=== PATIENT | female | born 1960 | race Caucasian/White ===

== ENCOUNTER → 2022-11-12 12:58 | Outpatient (BNVA) | payer OTHER, SELFPAY | PROVIDERS: PCP Family Medicine; Visit Provider Family Medicine | DX: M25.50 Pain in unspecified joint (principal); M19.90 Unspecified osteoarthritis, unspecified site; K21.9 Gastro-esophageal reflux disease without esophagitis; L70.9 Acne, unspecified; F32.A Depression, unspecified | CPT/HCPCS: 80053; 85651; 86038; 86140; 86431 ==

== ENCOUNTER → 2022-11-25 09:51 | Outpatient (BNVA) | payer OTHER, SELFPAY | PROVIDERS: PCP Family Medicine; Visit Provider Internal Medicine Rheumatology | DX: R76.8 Other specified abnormal immunological findings in serum (principal); Z79.899 Other long term (current) drug therapy; M19.90 Unspecified osteoarthritis, unspecified site; M45.6 Ankylosing spondylitis lumbar region; Z11.59 Encounter for screening for other viral diseases; Z71.85 Encounter for immunization safety counseling | CPT/HCPCS: 36415; 82306; 85025; 86160; 86162; 86200; 86235; 86255; 86376; 86480; 86704; 86800; 86803; 86812; 87340 ==

== ENCOUNTER 2023-08-13 07:38 | Outpatient (CLI) | payer OTHER, SELFPAY ==
--- NOTE | 2023-08-13 08:10 | MM_ITS ---
WS: [id number] VIEWS: MLO and CC views both breasts. 3D digital tomosynthesis is also included in this exam. Comparison made with prior exam of 02/04/2022. Findings: There was no sign of mass, architectural distortion or suspicious calcification in either breast. Sta ble appearing nodular densities and intramammary lymph nodes in both breasts. There are scattered are as of fibroglandular density Impression: MM/[place] [id number] BI-RADS: 2-Benign finding. FOLLOW-UP: 1 Year Follow-up This mammogram was also analyzed by the Computer Aided Detection System R2 Imag e Breakdown Person.
== END 2023-08-13 07:39 | disposition home or self-care (01) ==
LOC: RAD 07:39
PROVIDERS: PCP Family Medicine; Visit Provider Family Medicine
DX: Z12.31 Encounter for screening mammogram for malignant neoplasm of breast (principal)
CPT/HCPCS: 77063; 77067

== ENCOUNTER 2024-07-18 12:14 | Outpatient (CLI) | payer OTHER, SELFPAY ==
--- NOTE | 2024-07-18 12:25 | XR_ITS ---
WS: [id number] Exam: XR lumbar spine 2-3V* [id number] Date/Time of Exam: 07/18/2024 12:39 PM Reason For Exam: M06.041 - Rheumatoid arthritis without rheumatoid factor,... No acute fracture or dislocation. 4.7 mm anterolisthesis of L5 on S1 noted. Mild to moderate degenera tive disc narrowing at all levels. Mild spondylosis. Moderate levoscoliosis at the thoracolumbar junc tion. Increased lordosis. Facet DJD at L4-5 and L5-S1. XR/XR lumbar spine 2-3V* [id number] IMPRESSION: 1. 4.7 mm anterolisthesis of L4 on L5 likely due to facet degeneration. 2. Additional degenerative changes and thoracolumbar levoscoliosis. 3. No acute fracture.
== END 2024-07-18 12:15 | disposition home or self-care (01) ==
PROVIDERS: PCP Family Medicine; Visit Provider Internal Medicine Rheumatology
DX: M47.896 Other spondylosis, lumbar region (principal); M51.369 Other intervertebral disc degeneration, lumbar region without mention of lumbar back pain or lower extremity pain; M43.16 Spondylolisthesis, lumbar region; M06.041 Rheumatoid arthritis without rheumatoid factor, right hand; M06.042 Rheumatoid arthritis without rheumatoid factor, left hand
CPT/HCPCS: 72100

== ENCOUNTER → 2024-08-03 08:24 | Outpatient (BNVA) | payer OTHER, SELFPAY | PROVIDERS: PCP Family Medicine; Referring Provider Internal Medicine Rheumatology; Visit Provider Orthopaedic Surgery | DX: M54.9 Dorsalgia, unspecified (principal) | CPT/HCPCS: 72110 ==

== ENCOUNTER 2024-08-16 08:28 | Outpatient (RCR) | payer OTHER, SELFPAY | END 2024-08-17 23:59 | disposition home or self-care (01) | LOC: SPT 08:28 | PROVIDERS: Visit Provider Orthopaedic Surgery | DX: M54.50 Low back pain, unspecified (principal); G89.29 Other chronic pain | CPT/HCPCS: 97161 ==

== ENCOUNTER 2024-08-18 06:00 | Outpatient (RCR) | payer OTHER, SELFPAY | END 2024-09-16 23:59 | disposition home or self-care (01) | LOC: SPT 06:00 | PROVIDERS: Visit Provider Orthopaedic Surgery | DX: M54.50 Low back pain, unspecified (principal); G89.29 Other chronic pain | CPT/HCPCS: 97110 ==

== ENCOUNTER 2024-09-17 06:00 | Outpatient (RCR) | payer OTHER, SELFPAY | END 2024-10-11 23:59 | disposition home or self-care (01) | LOC: SPT 06:00 | PROVIDERS: Visit Provider Orthopaedic Surgery | DX: M54.50 Low back pain, unspecified (principal); G89.29 Other chronic pain | CPT/HCPCS: 97110; 97164 ==

== ENCOUNTER 2024-12-13 13:57 | Outpatient (CLI) | payer OTHER, SELFPAY ==
--- NOTE | 2024-12-13 14:01 | MM_ITS ---
WS: [id number] BILATERAL 3D TOMOSYNTHESIS DIGITAL SCREENING MAMMOGRAPHY WITH CAD CLINICAL INFORMATION: SCREENING HISTORY: Screening mammogram. No current complaints. COMPARISON: 2022 TECHNIQUE: Bilateral CC and MLO views. FINDINGS: Scattered fibroglandular densities bilaterally. No suspicious focal mass, asymmetry, calcifications, or architectural distortion. No evidence of malignancy. Few tiny punctate and skin calcifications. MM/MM scr tomosynthesis [id number] IMPRESSION: DENSITY: There are scattered areas of fibroglandular density. BI-RADS: 2 - Benign. FOLLOW UP: 1 Year Follow-up Recommend return to annual screening mammography.
== END 2024-12-13 13:58 | disposition home or self-care (01) ==
LOC: RAD 13:59
PROVIDERS: PCP Family Medicine; Visit Provider Family Medicine
DX: Z12.31 Encounter for screening mammogram for malignant neoplasm of breast (principal); R92.323 Mammographic fibroglandular density, bilateral breasts; R92.1 Mammographic calcification found on diagnostic imaging of breast
CPT/HCPCS: 77063; 77067

== ENCOUNTER 2024-12-21 06:46 | Outpatient (CLI) | payer OTHER, MEDICAID, SELFPAY ==
--- NOTE | 2024-12-21 06:58 | CT_ITS ---
WS: [id number] CT ABDOMEN AND PELVIS WITH CONTRAST HISTORY: GENERALIZED ABD PAIN TECHNIQUE: Imaging performed of the abdomen and pelvis with IV contrast. Single phase imaging of the abdomen. Coronal and sagittal reformats are submitted. All CT scans at [facility] use at least one of these dose optimization techniques: automated exposure control; mA and/or kV adjustment per patient size (includes targeted exams where dose is matched to clinical indication); or iterative reconstruction. IV CONTRAST: Omnipaque 350; 100 mL IV. Oral contrast: Yes. DLP: 314.32 mGy.cm COMPARISON: None available. Lower thorax: Very small bilateral pleural effusions. Mild compressive atelectasis at the lung bases. No pulmonary nodule. There is very slight irregularity along the surface of the pleural effusions. Heart is normal size. Small hiatal hernia. Liver/biliary system: Normal size liver. Too small to characterize low- attenuation nodule near the gallbladder. No intrahepatic duct dilatation. Gallbladder: Normal. No gallstones or wall thickening. No pericholecystic fluid. Pancreas: Normal size pancreas and pancreatic duct. No adjacent inflammation. Spleen: Normal size spleen. No mass or infarct. Adrenal glands: Normal. Right kidney: Normal. Left kidney: Normal. Aorta: Normal. Lymphadenopathy: Pericardiac enlarged lymph nodes are hypervascular measuring up to 9 mm. Lymph nodes extend along the anterior omentum over the liver. Extensive coalescence of omental masses throughout the peritoneum. Additional more discrete nodular pattern is also present throughout the omentum. Nodules and coalescing carcinomatosis begin in the upper abdomen and extend inferiorly into the pelvis. Additional metastatic implants are noted within the pelvis. Implants are surrounded by ascites. Additional implants are noted along the serosal surface of the GI tract. Greatest serosal involvement of the transverse and LEFT colon. Implants extend along the distal gonadal veins and the ligaments of the pelvis. Greatest on the LEFT broad ligament involvement. Free fluid: Small to moderate amount of free fluid throughout the peritoneal cavity. Fluid surrounds the liver and extends along the paracolic gutter into the pelvis. GI tract: No GI tract obstruction. Appendix appears normal and is surrounded by fluid. Marked serosal implants along the surface of the colon which extend into the omentum. More focal nodularity in the descending colon. No obstructive pattern. Abdominal wall: Unremarkable abdominal wall. No hernia. Pelvis: Free fluid within the pelvis with numerous soft tissue metastatic deposits. Bones: Unremarkable. CT/CT abdomen pelvis w con* [id number] IMPRESSION: 1. 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 Coalesc ent and nodular carcinomatosis. Serosal implants on the surface of the colon. E xtensive metastatic deposits along the peritoneal surfaces of the abdomen and p patricia. Consider ovarian and GI as possible etiologies. 2. Small to moderate amount of ascites with omental implants. 3. Normal appendix. 4. Very small bilateral pleural effusions. Very slight nodularity of the pleur al effusions. Metastatic sites not excluded. 5. Paracardiac lymph nodes.
[2024-12-21] MEDS: iohexol 350 mg/mL 500 mL Btl (per mL) PO (07:17)
[2024-12-21 07:42] LABS: Blood Urea Nitrogen 13 mg/dL (8-23); Glomerular Filtration Rate 84.8 mL/min (90-130)
[2024-12-21] MEDS: iohexol 350 mg/mL 500 mL Btl (per mL) IV (08:06)
== END 2024-12-21 06:47 | disposition home or self-care (01) ==
PROVIDERS: PCP Family Medicine; Visit Provider Family Medicine
DX: R10.84 Generalized abdominal pain (principal); C80.1 Malignant (primary) neoplasm, unspecified; C78.6 Secondary malignant neoplasm of retroperitoneum and peritoneum; J90 Pleural effusion, not elsewhere classified; J98.11 Atelectasis; K44.9 Diaphragmatic hernia without obstruction or gangrene; R59.0 Localized enlarged lymph nodes; R93.3 Abnormal findings on diagnostic imaging of other parts of digestive tract; R93.89 Abnormal findings on diagnostic imaging of other specified body structures; R18.8 Other ascites
CPT/HCPCS: 74177; 82565; 84520

== ENCOUNTER 2024-12-23 12:50 | Emergency (ER) | payer OTHER, SELFPAY ==
[2024-12-23 12:55] VITALS: BP 114/80; PULSE 81; RESP 15; TEMP 36.7; O2SAT 99; BMI 23.0
--- NOTE | 2024-12-23 14:46 | W.ED.ABDPA2 ---
HPI - Abdominal Pain General: Chief Complaint: Abdominal Pain Stated Complaint: abdominal swelling/pain Time Seen by Provider: 12/23/24 14:43 History of Present Illness: 64-year-old female presents emergency room with complaint of abdominal distention and swelling. She recently had a CT done 2 days ago that showed omental carcinomatosis highly suspicious for ovarian cancer she tells me she had a CA125 done at her primary care doctor's office is markedly elevated she has follow-up early next week with surgery presumably to confirm diagnosis. She not had any significant abdominal pain or cramping at this point. Associated Symptoms: Reports bloating; Denies chills, dysuria and fever(s) Related Data Home Medications ?Medication ?Instructions ?Recorded ?Confirmed tirzepatide (weight loss) 2.5 2.5 mg SUBCUT .Q7DAYS 06/06/24 12/23/24 mg/0.5 mL subcutaneous pen injector (Zepbound) famotidine 40 mg tablet 40 mg PO DAILY 12/12/24 12/23/24 gabapentin 100 mg capsule 100 mg PO BEDTIME 12/12/24 12/23/24 minocycline 50 mg capsule 150 mg PO BEDTIME 12/23/24 12/23/24 terbinafine HCl 250 mg tablet 250 mg PO DAILY 12/23/24 12/23/24 Previous Rx's ?Medication ?Instructions ?Recorded citalopram 40 mg tablet 40 mg PO DAILY depression #90 tabs 07/14/23 spironolactone 50 mg tablet 50 mg PO DAILY #90 tabs 08/02/23 hydroxychloroquine 200 mg tablet See Rx Instructions PO .COMPLEX 12/12/24 #135 tabs hydrocodone 5 mg-acetaminophen 325 1 tab PO Q6H PRN pain #28 tabs 12/23/24 mg tablet promethazine 25 mg tablet 25 mg PO Q6H PRN nausea and 12/23/24 vomiting #28 tabs Allergies Allergy/AdvReac Type Severity Reaction Status Date / Time tramadol AdvReac Intermediate nausea and Verified 08/03/24 08:19 vomiting Review of Systems Const: Denies: fever(s) or chills Card: Denies: chest pain Resp: Denies: dyspnea GI: Reports: bloating; Denies: abdominal pain : Denies: dysuria, urinary frequency or urinary urgency Musc: Denies: neck pain or back pain Skin/Breast: Denies: rash PFSH ED PFSH: Medical History Seronegative rheumatoid arthritis of both hands Paronychia of great toe Immunization counseling High risk medication use Inflammatory arthritis Family History Other Cancer Diabetes Hypertension Lung disease Stroke Denies family history of Rheumatoid arthritis Lupus CAD (coronary artery disease) Psoriatic arthritis Chronic kidney disease (CKD) Family history of premature coronary artery disease Social History Smoking and tobacco/nicotine status: unknown if used tobacco/nicotine Alcohol intake: current Alcohol intake frequency: few times a month Physical Exam Const: COMMON NORMALS: no acute distress GENERAL APPEARANCE: cooperative and comfortable ORIENTATION/CONSCIOUSNESS: Yes awake, Yes oriented to person, Yes oriented to place and Yes oriented to time HENMT: COMMON NORMALS: normocephalic, atraumatic and hearing grossly normal bilaterally HEAD & SCALP: normocephalic and atraumatic Resp: COMMON NORMALS: normal respiratory effort, No retractions, No use of accessory muscles and clear to auscultation bilaterally AUSCULTATION: clear to auscultation bilaterally Cardio: COMMON NORMALS: regular rate, regular rhythm and No murmurs present (Cardio) RATE: regular rate RHYTHM: regular rhythm GI: COMMON NORMALS: Soft to palpation and No hepatosplenomegaly present INSPECTION: Yes abdominal distension (Moderate) AUSCULTATION: Yes normoactive bowel sounds PALPATION: Yes Soft to palpation, No Tenderness to palpation present (GI), No Guarding due to palpation present (GI) and Yes No hepatosplenomegaly present Extremity: COMMON NORMALS: normal to inspection, capillary refill normal, no clubbing, cyanosis or edema, no calf tenderness and no pedal edema Neuro: SENSORIUM/ORIENTATION: Yes oriented to person, Yes oriented to place and Yes oriented to time Skin: COMMON NORMALS: no rashes or lesions noted GENERAL SKIN EXAM: no rashes or lesions noted Course Vital Signs: Vital signs: Vital Signs Temperature 98.1 F 12/23/24 12:55 Pulse Rate 74 12/23/24 15:38 Respiratory Rate 15 12/23/24 12:55 Blood Pressure 114/80 12/23/24 12:55 Pulse Oximetry 96 12/23/24 15:38 Oxygen Delivery Me thod Room Air 12/23/24 12:55 MDM - Abdominal Pain Medical Decision Making Patient reports having increased abdominal distention. Not seen or examined her before but suspect based on reviewing the CT that she truly does. She had pretty considerable ascites on the CT. Discussed with her it is not unusual for this once it is began to manifest to become more noticeable suspect in the next week or 2 she will likely need to have a therapeutic and diagnostic paracentesis. Today is Wednesday we do not have anyone here to do the paracentesis. She could benefit from a diagnostic paracentesis which could help confirm diagnosis since she does not have a tissue confirm diagnosis at this point. Given all the history she is provide in reviewing the CT very highly suspicious for cancer particularly ovarian cancer. Discussed with her however we cannot be 100% certain until they have a tissue diagnosis. She asked expressed understanding of this. Reviewed that there is not really much medic by way of medications and give her that we will cut down on the ascites at this point. I did give her hydrocodone or promethazine so that if this worsens and she is has not increased pain nausea or abdominal discomfort she has medicines available to treat. Strongly encouraged her to follow-up with the scheduled appointments this coming week. Medical Records I reviewed the patient's medical records. Lab Data I reviewed the patient's lab results. 12/23/24 14:37 12/23/24 14:37 Labs/Radiology: Laboratory Results WBC 5.95 10^3/uL (3.29-11.43) 12/23/24 14:37 RBC 4.08 10^6/uL (3.85-5.65) 12/23/24 14:37 Hgb 12.60 g/dL (11.27-16.99) 12/23/24 14:37 Hct 39.0 % (36-47) 12/23/24 14:37 MCV 95.6 fl (85-98) 12/23/24 14:37 MCH 30.9 pg (27-33) 12/23/24 14:37 MCHC 32.3 g/dL (30-55) 12/23/24 14:37 RDW 11.9 % (12.1-15.1) L 12/23/24 14:37 Plt Count 387 10^3/cmm (157-399) 12/23/24 14:37 MPV 8.7 fL (7.4-10.4) 12/23/24 14:37 Neut % (Auto) 68.4 % 12/23/24 14:37 Lymph % (Auto) 19.2 % 12/23/24 14:37 Grand % (Auto) 9.6 % 12/23/24 14:37 Eos % (Auto) 1.7 % 12/23/24 14:37 Baso % (Auto) 0.8 % 12/23/24 14:37 Neut # (Auto) 4.07 10^3/uL (1.8-7.7) 12/23/24 14:37 Lymph # (Auto) 1.1 10^3/uL (0.8-4.8) 12/23/24 14:37 Grand # (Auto) 0.6 10^3/uL (0.2-0.9) 12/23/24 14:37 Eos # (Auto) 0.1 10^3/uL (0.0-0.8) 12/23/24 14:37 Baso # (Auto) 0.1 10^3/uL (0.0-0.1) 12/23/24 14:37 Nucleated RBC % (auto) 0 % 12/23/24 14:37 Nucleated RBCs # 0.0 /100WBC 12/23/24 14:37 PT 13.30 SECONDS (12.1-14.9) 12/23/24 14:37 INR 0.95 (0.8-1.2) 12/23/24 14:37 APTT 28.9 SECONDS (23.9-36.7) 12/23/24 14:37 Sodium 140 mmol/L (136-145) 12/23/24 14:37 Potassium 4.2 mmol/L (3.5-5.1) 12/23/24 14:37 Chloride 103 mmol/L (98-107) 12/23/24 14:37 Carbon Dioxide 26 mmol/L (22-29) 12/23/24 14:37 Anion Gap 15.2 (5-19) 12/23/24 14:37 BUN 19 mg/dL (8-23) 12/23/24 14:37 Creatinine 0.6 mg/dL (0.5-0.9) 12/23/24 14:37 GFR Calculation 101.3 mL/min (90-130) 12/23/24 14:37 Glucose 83 mg/dL (65-115) 12/23/24 14:37 Calculated Osmolality 291 mOsm/kg (285-295) 12/23/24 14:37 Calcium 9.3 mg/dL (8.5-10.5) 12/23/24 14:37 Total Bilirubin 0.3 mg/dL (0.15-1.2) 12/23/24 14:37 AST 24 U/L (0-32) 12/23/24 14:37 ALT 14 U/L (0-33) 12/23/24 14:37 Alkaline Phosphatase 140 U/L (35-105) H 12/23/24 14:37 Total Protein 6.0 g/dL (6.6-8.7) L 12/23/24 14:37 Albumin 3.6 g/dL (3.5-5.2) 12/23/24 14:37 Globulin 2.4 g/dL (1.3-4.6) 12/23/24 14:37 All radiology interpretation(s) finalized by discharge Discharge Plan Discharge Patient Disposition: Home Clinical Impression: Carcinoma of omentum, Abdominal ascites Condition: Stable Prescriptions: New hydrocodone-acetaminophen 5-325 mg tablet 1 tab PO Q6H PRN (Reason: pain) Qty: 28 0RF promethazine 25 mg tablet 25 mg PO Q6H PRN (Reason: nausea and vomiting) Qty: 28 0RF No Action hydroxychloroquine 200 mg tablet See Rx Instructions PO .COMPLEX Qty: 135 1RF Rx Instructions: Alternate taking 1 tablet by mouth today then 2 tablets tomorrow. famotidine 40 mg tablet 40 mg PO DAILY gabapentin 100 mg capsule 100 mg PO BEDTIME Zepbound 2.5 mg/0.5 mL pen injector 2.5 mg SUBCUT .Q7DAYS citalopram 40 mg tablet 40 mg PO DAILY Qty: 90 0RF spironolactone 50 mg tablet 50 mg PO DAILY Qty: 90 3RF terbinafine HCl 250 mg tablet 250 mg PO DAILY Rx Instructions: [id number] minocycline 50 mg capsule 150 mg PO BEDTIME Discharge Orders: Discharge ED (Routine); Ordered 12/23/24 Ordered By: Will Jackson Referrals: Kathleen Helms, [Primary Care Provider] - Discharge Diet: Usual diet Discharge Activity: Increase activity as tolerated Patient Instructions: Opioid Safety, Pain Management Activity Restrictions/Additional Instructions: Thank you for choosing [facility] for your healthcare needs today. It is very important that you follow up as instructed or that you return to the Emergency Department should you have concerns or if your condition changes or worsens in any way. You were seen in the emergency room for swelling in the abdomen. This is likely related to the omental carcinomatosis noted on the CT done 2 days ago. Usually once ascites starts from the source it will increase rather rapidly. After our discussion we opted not to do an ultrasound since there would be no likely interventions today in the emergency room. You should keep your scheduled appointment for further workup for this. You were given pain and nausea medications to use as needed if you have worsening symptoms. It is not unusual as this develops and increases to have more nausea and abdominal cramping. Print Language: Guamanian Coding Level of Care Code ED Chassis Mechanic for Julian Blank
[2024-12-23 14:47] LABS: Basophils # 0.1 10^3/uL (0.0-0.1); Basophils % 0.8 %; Eosinophils # 0.1 10^3/uL (0.0-0.8); Eosinophils % 1.7 %; Lymphocytes # 1.1 10^3/uL (0.8-4.8); Lymphocytes % 19.2 %; Mean Corpuscular HGB Conc 32.3 g/dL (30-55); Mean Corpuscular Hemoglobin 30.9 pg (27-33); Mean Corpuscular Volume 95.6 fl (85-98); Mean Platelet Volume 8.7 fL (7.4-10.4); Monocytes # 0.6 10^3/uL (0.2-0.9); Monocytes % 9.6 %; Neutrophils # 4.07 10^3/uL (1.8-7.7); Neutrophils % 68.4 %; Nucleated Red Blood Cells % 0 %; Platelet Count 387 10^3/cmm (157-399); Red Blood Count 4.08 10^6/uL (3.85-5.65); Red Cell Distribution Width 11.9 % (12.1-15.1); White Blood Count 5.95 10^3/uL (3.29-11.43)
[2024-12-23 14:54] LABS: INR 0.95 (0.8-1.2)
[2024-12-23 14:55] LABS: Partial Thromboplastin Time 28.9 SECONDS (23.9-36.7)
[2024-12-23 15:05] LABS: Alanine Aminotransferase 14 U/L (0-33); Albumin Level 3.6 g/dL (3.5-5.2); Alkaline Phosphatase 140 U/L (35-105); Anion Gap 15.2 (5-19); Aspartate Amino Transferase 24 U/L (0-32); Blood Urea Nitrogen 19 mg/dL (8-23); Calcium 9.3 mg/dL (8.5-10.5); Carbon Dioxide 26 mmol/L (22-29); Chloride 103 mmol/L (98-107); Creatinine Clr Calc Pharmacy 87.6824; Globulin 2.4 g/dL (1.3-4.6); Glomerular Filtration Rate 101.3 mL/min (90-130); Glucose 83 mg/dL (65-115); Osmolality Calculated 291 mOsm/kg (285-295); Potassium 4.2 mmol/L (3.5-5.1); Sodium 140 mmol/L (136-145); Total Bilirubin 0.3 mg/dL (0.15-1.2)
[2024-12-23 15:38] VITALS: PULSE 74; O2SAT 96
== END 2024-12-23 15:39 | disposition home or self-care (01) ==
PROVIDERS: Emergency Provider Family Medicine; PCP Family Medicine
DX: C48.1 Malignant neoplasm of specified parts of peritoneum (principal); R18.8 Other ascites
CPT/HCPCS: 36415; 80053; 85025; 85610; 85730; 99284

== ENCOUNTER 2025-01-05 13:59 | Emergency (ER) | payer MEDICAID, SELFPAY ==
[2025-01-05 14:56] VITALS: BP 116/73; PULSE 93; RESP 18; TEMP 37; O2SAT 99; BMI 24.0
[2025-01-05 15:55] LABS: Basophils % 0.5 %; Eosinophils # 0.1 10^3/uL (0.0-0.8); Eosinophils % 0.8 %; Lymphocytes # 0.9 10^3/uL (0.8-4.8); Lymphocytes % 11.8 %; Mean Corpuscular HGB Conc 32.4 g/dL (30-55); Mean Corpuscular Hemoglobin 29.8 pg (27-33); Mean Corpuscular Volume 91.8 fl (85-98); Mean Platelet Volume 8.6 fL (7.4-10.4); Monocytes # 0.7 10^3/uL (0.2-0.9); Monocytes % 9.5 %; Neutrophils # 5.75 10^3/uL (1.8-7.7); Nucleated Red Blood Cells % 0 %; Platelet Count 459 10^3/cmm (157-399); Red Blood Count 4.03 10^6/uL (3.85-5.65); White Blood Count 7.47 10^3/uL (3.29-11.43)
[2025-01-05 16:11] LABS: Alanine Aminotransferase 26 U/L (0-33); Alkaline Phosphatase 257 U/L (35-105); Anion Gap 16.9 (5-19); Aspartate Amino Transferase 44 U/L (0-32); Blood Urea Nitrogen 10 mg/dL (8-23); Calcium 9.2 mg/dL (8.5-10.5); Carbon Dioxide 23 mmol/L (22-29); Chloride 101 mmol/L (98-107); Globulin 3.1 g/dL (1.3-4.6); Glucose 77 mg/dL (65-115); Lipase 25 U/L (13-60); Osmolality Calculated 282 mOsm/kg (285-295); Potassium 3.9 mmol/L (3.5-5.1); Sodium 137 mmol/L (136-145); Total Bilirubin 0.6 mg/dL (0.15-1.2); Total Protein 6.1 g/dL (6.6-8.7)
[2025-01-05 18:15] VITALS: PULSE 98; O2SAT 94
--- NOTE | 2025-01-05 21:37 | ED_ITS ---
HPI - Abdominal Pain 2 General: Chief Complaint: Abdominal Pain Stated Complaint: cancer, pain and fluid all over Time Seen by Provider: 01/05/25 21:01 History of Present Illness: June is a very pleasant 64-year-old female who is here with questions about her cancer and related symptoms. She has recently been diagnosed from ovarian cancer, according to her report. She has been going to [facility] for her workup and is planning to return there shortly for discussions about debulking surgery and chemotherapy. The patient reports she started developing ascites. She had a paracentesis 4 days ago. They removed 1.1 L. Patient reports the fluid has returned and she thought she needed another paracentesis. Patient reports at times it is uncomfortable. She also wanted me to look at her port which was recently implanted to make sure there was not any sign of infection. She says initially there was a bunch of erythema around it but fortunately it has retreated. She does not feel it is overtly infected now but wants a second opinion. No fever or chills. Patient reports her pain waxes and wanes. She has been prescribed hydrocodone and oxycodone to use as needed for moderate or severe pain. Related Data Home Medications ?Medication ?Instructions ?Recorded ?Confirmed tirzepatide (weight loss) 2.5 2.5 mg SUBCUT .Q7DAYS 12/25/24 mg/0.5 mL subcutaneous pen injector (Zepbound) famotidine 40 mg tablet 40 mg PO DAILY 12/12/2412/16 gabapentin 100 mg capsule 100 mg PO BEDTIME 12/12/24 0 12/25/24 minocycline 50 mg capsule 150 mg PO BEDTIME 12/23/24 0 12/25/24 terbinafine HCl 250 mg tablet 250 mg PO DAILY 12/23/24 12/25/24 Previous Rx's ?Medication ?Instructions ?Recorded citalopram 40 mg tablet 40 mg PO DAILY depression #9 0 tabs 07/14/23 spironolactone 50 mg tablet 50 mg PO DAILY #90 tabs hydroxychloroquine 200 mg tablet See Rx Instructions P O .COMPLEX 12/12/24 #135 tabs hydrocodone 5 mg-acetaminophen 325 1 tab PO Q6H PRN pa in #28 tabs 12/23/24 mg tablet promethazine 25 mg tablet 25 mg PO Q6H PRN nausea and 12/23/24 vomiting #28 tabs Allergies Allergy/AdvReac Type Severity Reaction Status Date / Time tramadol AdvReac Intermediate nausea and Verified 12/25/24 08:04 vomiting Review of Systems 2 General: Reports: 10 or more systems reviewed and unremarkable except in HPI and below Narrative: Return of ascites, occasionally she feels like she is getting fluid buildup outside of her lungs and gets a cough, the ascites causes her urinary frequency and sometimes an urge to have a bowel movement. No fever or chills. She had some erythema around her port that she wants looked at. No other complaints. PFSH ED 2 PFSH: Medical History Seronegative rheumatoid arthritis of both hands Paronychia of great toe Immunization counseling High risk medication use Inflammatory arthritis Family History Other Cancer Diabetes Hypertension Lung disease Stroke Denies family history of Rheumatoid arthritis Lupus CAD (coronary artery disease) Psoriatic arthritis Chronic kidney disease (CKD) Family history of premature coronary artery disease Social History Smoking and tobacco/nicotine status: never used tobacco/nicotine Alcohol intake: current Alcohol intake frequency: few times a month Physical Exam 2 Const: COMMON NORMALS: no limitations, alert and well nourished EXAM LIMITATIONS: no altered mental status HENMT: COMMON NORMALS: normocephalic, atraumatic and external ears normal H EAD & SCALP: normocephalic and atraumatic EXTERNAL EAR: Yes external ears normal MOUTH: no muffled voice Eye: COMMON NORMALS: conjunctivae normal and no scleral icterus C ONJUNCTIVA: Yes conjunctivae normal Neck/C-Spine: COMMON NORMALS: no JVD GENERAL: Yes normal visual inspection and Yes trachea midline Resp: COMMON NORMALS: normal respiratory effort and No use of accessory muscles Cardio: COMMON NORMALS: no JVD and regular rate RATE: regular rate GI: COMMON NORMALS: Soft to palpation and non-tender (Mild generalized tenderness.) PALPATION: Yes Soft to palpation and No Guarding due to palpation present (GI) OTHER: Patient has a low volume ascites present. No caput medusa. She still has a bandage on her abdomen from paracentesis on Wednesday. Extremity: COMMON NORMALS: normal to inspection Neuro: COMMON NORMALS: moves all extremities, no focal motor deficits and no sensory deficits noted SENSORIUM/ORIENTATION: Yes alert SPEECH: speech normal Psych: COMMON NORMALS: mental status grossly normal, Normal thought process present, cooperative, normal affect and speech normal SPEECH: Yes normal speech THOUGHT PROCESS: Normal thought process present Skin: COMMON NORMALS: turgor normal and no jaundice NARRATIVE SKIN EXAM: Incision in the right chest shows localized erythema. This looks within normal limits for recent placement of her port. Low suspicion for infection based on visual inspection and palpation GENERAL SKIN EXAM: turgor normal Course 2 Vital Signs: Vital signs: Vital Signs Temperature 98.6 F 01/05/25 14:56 Pulse Rate 98 01/05/25 18:15 Respiratory Rate 18 01/05/25 14:56 Blood Pressure 116/73 01/05/25 14:56 Pulse Oximetry 94 01/05/25 18:15 Oxygen Delivery Me thod Room Air 01/05/25 14:56 MDM - Abdominal Pain Medical Decision Making 1. Cancer related pain. Patient reports she has adequate pain control when she uses her hydrocodone and oxycodone. Currently she is only been using it sparingly at bedtime. Patient was informed that this can be a painful process and that she should feel free to use it whenever she has moderate to severe pain that is not controlled by Tylenol and other supportive measures. 2. Patient was educated about ascites. She now knows that it will return and will continue to be a problem for her as she goes through the treatment process. Her abdomen is soft, not tense, and I have a low suspicion for SBP at this time. She just had paracentesis on Wednesday and they remove 1.1 L. 3. I did evaluate her port. There is expected amount of erythema immediately around the incision. There is no purulent discharge. There does not appear to be any significant cellulitis. The patient is afebrile nontoxic-appearing. No clinical signs of infection. White blood cell count is normal. I reviewed a CBC and CMP. Elevated alkaline phosphatase is expected. Slightly low albumin as expected. No other significant findings. Patient was reassured by our discussion. I also talked to her about making a living will and consider a revocable trust. This will give her much needed peace of mind. Patient to follow-up with [facility] for oncology care. Medical Records I reviewed the patient's medical records. Lab Data I reviewed the patient's lab results. 01/05/25 15:47 01/05/25 15:47 Labs/Radiology: Laboratory Results WBC 7.47 10^3/uL (3.29-11.43) 01/05/25 15:47 RBC 4.03 10^6/uL (3.85-5.65) 01/05/25 15:47 Hgb 12.00 g/dL (11.27-16.99) 01/05/25 15:47 Hct 37.0 % (36-47) 01/05/25 15:47 MCV 91.8 fl (85-98) 01/05/25 15:47 MCH 29.8 pg (27-33) 01/05/25 15:47 MCHC 32.4 g/dL (30-55) 01/05/25 15:47 RDW 12.0 % (12.1-15.1) L 01/05/25 15:47 Plt Count 459 10^3/cmm (157-399) H 01/05/25 15:47 MPV 8.6 fL (7.4-10.4) 01/05/25 15:47 Neut % (Auto) 77.0 % 01/05/25 15:47 Lymph % (Auto) 11.8 % 01/05/25 15:47 Phelps % (Auto) 9.5 % 01/05/25 15:47 Eos % (Auto) 0.8 % 01/05/25 15:47 Baso % (Auto) 0.5 % 01/05/25 15:47 Neut # (Auto) 5.75 10^3/uL (1.8-7.7) 01/05/25 15:47 Lymph # (Auto) 0.9 10^3/uL (0.8-4.8) 01/05/25 15:47 Phelps # (Auto) 0.7 10^3/uL (0.2-0.9) 01/05/25 15:47 Eos # (Auto) 0.1 10^3/uL (0.0-0.8) 01/05/25 15:47 Baso # (Auto) 0.0 10^3/uL (0.0-0.1) 01/05/25 15:47 Nucleated RBC % (auto) 0 % 01/05/25 15:47 Nucleated RBCs # 0.0 /100WBC 01/05/25 15:47 Sodium 137 mmol/L (136-145) 01/05/25 15:47 Potassium 3.9 mmol/L (3.5-5.1) 01/05/25 15:47 Chloride 101 mmol/L (98-107) 01/05/25 15:47 Carbon Dioxide 23 mmol/L (22-29) 01/05/25 15:47 Anion Gap 16.9 (5-19) 01/05/25 15:47 BUN 10 mg/dL (8-23) 01/05/25 15:47 Creatinine 0.5 mg/dL (0.5-0.9) 01/05/25 15:47 GFR Calculation 125.0 mL/min (90-130) 01/05/25 15:47 Glucose 77 mg/dL (65-115) 01/05/25 15:47 Calculated Osmolality 282 mOsm/kg (285-295) L 01/05/25 15:47 Calcium 9.2 mg/dL (8.5-10.5) 01/05/25 15:47 Total Bilirubin 0.6 mg/dL (0.15-1.2) 01/05/25 15:47 AST 44 U/L (0-32) H 01/05/25 15:47 ALT 26 U/L (0-33) 01/05/25 15:47 Alkaline Phosphatase 257 U/L (35-105) H 01/05/25 15:47 Total Protein 6.1 g/dL (6.6-8.7) L 01/05/25 15:47 Albumin 3.0 g/dL (3.5-5.2) L 01/05/25 15:47 Globulin 3.1 g/dL (1.3-4.6) 01/05/25 15:47 Lipase 25 U/L (13-60) 01/05/25 15:47 No radiology studies performed this visit Discharge Plan Discharge Patient Disposition: Home Clinical Impression: Disseminated ovarian cancer, Abdominal ascites, Cancer associated pain Condition: Stable Prescriptions: No Action hydroxychloroquine 200 mg tablet See Rx Instructions PO .COMPLEX Qty: 135 1RF Rx Instructions: Alternate taking 1 tablet by mouth today then 2 tablets tomorrow. famotidine 40 mg tablet 40 mg PO DAILY gabapentin 100 mg capsule 100 mg PO BEDTIME Zepbound 2.5 mg/0.5 mL pen injector 2.5 mg SUBCUT .Q7DAYS citalopram 40 mg tablet 40 mg PO DAILY Qty: 90 0RF spironolactone 50 mg tablet 50 mg PO DAILY Qty: 90 3RF terbinafine HCl 250 mg tablet 250 mg PO DAILY Rx Instructions: [id number] minocycline 50 mg capsule 150 mg PO BEDTIME hydrocodone-acetaminophen 5-325 mg tablet 1 tab PO Q6H PRN (Reason: pain) Qty: 28 0RF promethazine 25 mg tablet 25 mg PO Q6H PRN (Reason: nausea and vomiting) Qty: 28 0RF Discharge Orders: Discharge ED (Routine); Ordered 01/05/25 Ordered By: Jesus Archibald Referrals: Kathleen Helms DO [Primary Care Provider] - Patient Instructions: Ascites (ED), Cancer Pain (ED), Opioid Safety, Pain Management Activity Restrictions/Additional Instructions: It is an unfortunate reality that ovarian cancer with carcinomatosis will cause fluid collection. This will accumulate in your abdomen and we will be uncomfortable. From time to time you may need it to be drained. Fortunately, at this time it is not significant enough to require drainage. However, it is bailey to schedule a paracentesis ahead of time. Often times patients do paracentesis on a scheduled basis, such as every 2 to 4 weeks. Remember, your ascites will reaccumulate fairly quickly while you have active cancer. Please follow-up with your cancer doctor as soon as possible to continue discussions about debulking surgery, chemotherapy, etc. You are welcome to return to the emergency department at any time if you have any new urgent concerns. You have indicated that you have hydrocodone and oxycodone. These medications are not intended to be taken at the same time. You may use hydrocodone for moderate pain. You may use oxycodone for severe pain. Print Language: Singaporean Coding Level of Care Code ED Door To Door Fundraising Collector for Julian Blank
== END 2025-01-05 21:51 | disposition home or self-care (01) ==
PROVIDERS: Physician Assistant; Emergency Provider Emergency Medicine; PCP Family Medicine
DX: C56.3 Malignant neoplasm of bilateral ovaries (principal); R18.8 Other ascites; G89.3 Neoplasm related pain (acute) (chronic)
CPT/HCPCS: 36415; 80053; 83690; 85025; 99283

== ENCOUNTER 2025-04-28 11:08 | Emergency (ER) | payer MEDICAID, SELFPAY ==
[2025-04-28 11:09] VITALS: BP 106/68; PULSE 66; RESP 16; TEMP 36.9; O2SAT 100; BMI 23.5
--- NOTE | 2025-04-28 11:24 | XRR_ITS ---
PROCEDURE INFORMATION: Exam: XR Chest Exam date and time: 04/28/2025 11:48 AM Age: 64 years old Clinical indication: Cough and dyspnea; Additional info: Dyspnea/cough TECHNIQUE: Imaging protocol: Radiologic exam of the chest. Views: 1 view. COMPARISON: CT abdomen pelvis w con* [id number] 12/21/2024 8:11 AM FINDINGS: Tubes, catheters and devices: A right-sided VAD is in good position with the catheter tip in the lower SVC. Lungs: Unremarkable. No consolidation or mass. Pleural spaces: Unremarkable. No pleural effusion. No pneumothorax. Heart/Mediastinum: Unremarkable. No cardiomegaly. Bones/joints: Unremarkable. XR/XR chest 1V portable [id number] IMPRESSION: No acute findings.
[2025-04-28 11:39] LABS: Hematocrit 34.4 % (36-47); Hemoglobin 11.10 g/dL (11.27-16.99); Mean Corpuscular HGB Conc 32.3 g/dL (30-55); Mean Corpuscular Hemoglobin 32.5 pg (27-33); Mean Corpuscular Volume 100.6 fl (85-98); Nucleated Red Blood Cells % 0 %; Platelet Count 537 10^3/cmm (157-399); Red Blood Count 3.42 10^6/uL (3.85-5.65); White Blood Count 5.65 10^3/uL (3.29-11.43)
--- NOTE | 2025-04-28 11:39 | ED_ITS ---
HPI - Abdominal Pain 2 General: Chief Complaint: Abdominal Pain Stated Complaint: lower abdominal pain post surgery Time Seen by Provider: 04/28/25 11:19 History of Present Illness: 64-year-old female presents today histor y of ovarian cancer. Carcinomatosis of the abdominal cavity. She is currently seeing chemotherapy through oncology. Patient has continued heavy typical bowel movements and pass gas. She was up to the night with her dog and had no significant pain she began having sharp pain particularly in the right lower quadrant this morning. 3 weeks ago she had a oophorectomy salpingectomy related to her ovarian cancer as a debulking procedure she had chemotherapy prior to surgery she is planning to undergo more chemotherapy but has not yet proceeded with resuming in the postop setting. She has not had any fever sweats or chills no dysuria urgency or frequency. Associated Symptoms: Reports nausea; Denies chills, diarrhea, dysuria, fever(s) and vomiting Related Data Home Medications ?Medication ?Instructions ?Recorded ?Confirmed famotidine 40 mg tablet 40 mg PO BEDTIME 12/12/24 gabapentin 100 mg capsule 100 mg PO BEDTIME 12/12/24 0 04/28/25 lidocaine-prilocaine 2.5 %-2.5 % 1 applic topical KRYSTLE Y for port 04/28/25 04/28/25 topical cream Previous Rx's ?Medication ?Instructions ?Recorded citalopram 40 mg tablet 40 mg PO DAILY depression #9 0 tabs 07/14/23 spironolactone 50 mg tablet 50 mg PO DAILY #90 tabs hydroxychloroquine 200 mg tablet See Rx Instructions P O .COMPLEX 12/12/24 #135 tabs hydrocodone 5 mg-acetaminophen 325 1 tab PO Q6H PRN pa in #28 tabs 12/23/24 mg tablet promethazine 25 mg tablet 25 mg PO Q6H PRN nausea and 12/23/24 vomiting #28 tabs lactulose 10 gram/15 mL oral 30 ml PO Q2H PRN constipa tion 72 04/28/25 solution (Generlac) hours #1,080 mL Allergies Allergy/AdvReac Type Severity Reaction Status Date / Time tramadol AdvReac Intermediate nausea and Verified 12/25/24 08:04 vomiting Review of Systems 2 Const: Denies: fever(s) or chills Card: Denies: chest pain Resp: Denies: dyspnea GI: Reports: abdominal pain and nausea; Denies: vomiting or diarrhea : Denies: dysuria, urinary frequency or urinary urgency Musc: Denies: neck pain or back pain Skin/Breast: Denies: rash PFSH ED 2 PFSH: Medical History Seronegative rheumatoid arthritis of both hands Paronychia of great toe Immunization counseling High risk medication use Inflammatory arthritis Family History Other Cancer Diabetes Hypertension Lung disease Stroke Denies family history of Rheumatoid arthritis Lupus CAD (coronary artery disease) Psoriatic arthritis Chronic kidney disease (CKD) Family history of premature coronary artery disease Social History Smoking and tobacco/nicotine status: never used tobacco/nicotine Alcohol intake: current Alcohol intake frequency: few times a month Physical Exam 2 Const: GENERAL APPEARANCE: cooperative ORIENTATION/CONSCIOUSNESS: Yes awake, Yes oriented to person, Yes oriented to place and Yes oriented to time HENMT: COMMON NORMALS: normocephalic, atraumatic and hearing grossly normal bilaterally HEAD & SCALP: normocephalic and atraumatic Resp: COMMON NORMALS: normal respiratory effort, No retractions, No use of accessory muscles and clear to auscultation bilaterally AUSCULTATION: clear to auscultation bilaterally Cardio: COMMON NORMALS: regular rate, regular rhythm and No murmurs present (Cardio) RATE: regular rate RHYTHM: regular rhythm GI: COMMON NORMALS: No hepatosplenomegaly present AUSCULTATION: Yes normoactive bowel sounds PALPATION: Yes Tenderness to palpation present (GI) Details: RLQ, No Guarding due to palpation present (GI) and Yes No hepatosplenomegaly present Extremity: COMMON NORMALS: normal to inspection, capillary refill normal, no clubbing, cyanosis or edema, no calf tenderness and no pedal edema Neuro: SENSORIUM/ORIENTATION: Yes oriented to person, Yes oriented to place and Yes oriented to time Skin: COMMON NORMALS: no rashes or lesions noted GENERAL SKIN EXAM: no rashes or lesions noted Course 2 Vital Signs: Vital signs: Vital Signs Temperature 98.4 F 04/28/25 11:09 Pulse Rate 64 07/12/25 13:42 Respiratory Rate 16 04/28/25 12:45 Blood Pressure 127/78 04/28/25 13:42 Pulse Oximetry 99 04/28/25 13:42 Oxygen Delivery Me thod Room Air 04/28/25 12:45 MDM - Abdominal Pain Medical Decision Making Patient mildly anemic. Remainder of her labs are workable CT of her abdomen shows constipation no other acute findings. She does use hydrocodone takes 1 at night. Will have her start on MiraLAX she continued to ORAL once daily half capful twice a day. Lactulose for immediate relief of her constipation. Follow-up with her primary care doctor oncology team Medical Records I reviewed the patient's medical records. Lab Data I reviewed the patient's lab results. 04/28/25 11:33 04/28/25 11:33 Labs/Radiology: Radiology Impressions Chest X-Ray 04/28/25 11:24 IMPRESSION: No acute findings. Abdomen/Pelvis CT 04/28/25 12:15 IMPRESSION: 1. Prominent constipation 2. Surgical changes noted Laboratory Results WBC 5.65 10^3/uL (3.29-11.43) 04/28/25 11:33 RBC 3.42 10^6/uL (3.85-5.65) L 04/28/25 11:33 Hgb 11.10 g/dL (11.27-16.99) L 04/28/25 11:33 Hct 34.4 % (36-47) L 04/28/25 11:33 MCV 100.6 fl (85-98) H 04/28/25 11:33 MCH 32.5 pg (27-33) 04/28/25 11:33 MCHC 32.3 g/dL (30-55) 04/28/25 11:33 RDW 13.7 % (12.1-15.1) 04/28/25 11:33 Plt Count 537 10^3/cmm (157-399) H 04/28/25 11:33 MPV 8.4 fL (7.4-10.4) 04/28/25 11:33 Neut % (Auto) 54.8 % 04/28/25 11:33 Lymph % (Auto) 29.6 % 04/28/25 11:33 Fannin % (Auto) 10.1 % 04/28/25 11:33 Eos % (Auto) 3.5 % 04/28/25 11:33 Baso % (Auto) 1.6 % 04/28/25 11:33 Neut # (Auto) 3.10 10^3/uL (1.8-7.7) 04/28/25 11:33 Lymph # (Auto) 1.7 10^3/uL (0.8-4.8) 04/28/25 11:33 Fannin # (Auto) 0.6 10^3/uL (0.2-0.9) 04/28/25 11:33 Eos # (Auto) 0.2 10^3/uL (0.0-0.8) 04/28/25 11:33 Baso # (Auto) 0.1 10^3/uL (0.0-0.1) 04/28/25 11:33 Nucleated RBC % (auto) 0 % 04/28/25 11:33 Nucleated RBCs # 0.0 /100WBC 04/28/25 11:33 Sodium 144 mmol/L (136-145) 04/28/25 11:33 Potassium 3.9 mmol/L (3.5-5.1) 04/28/25 11:33 Chloride 104 mmol/L (98-107) 04/28/25 11:33 Carbon Dioxide 28 mmol/L (22-29) 04/28/25 11:33 Anion Gap 15.9 (5-19) 04/28/25 11:33 BUN 15 mg/dL (8-23) 04/28/25 11:33 Creatinine 0.5 mg/dL (0.5-0.9) 04/28/25 11:33 GFR Calculation 125.0 mL/min (90-130) 04/28/25 11:33 Glucose 99 mg/dL (65-115) 04/28/25 11:33 Calculated Osmolality 299 mOsm/kg (285-295) H 04/28/25 11:33 Calcium 10.7 mg/dL (8.5-10.5) H 04/28/25 11:33 Magnesium 1.8 mg/dL (1.7-2.3) 04/28/25 11:33 Total Bilirubin 0.4 mg/dL (0.15-1.2) 04/28/25 11:33 AST 23 U/L (0-32) 04/28/25 11:33 ALT 19 U/L (0-33) 04/28/25 11:33 Alkaline Phosphatase 150 U/L (35-105) H 04/28/25 11:33 Total Protein 6.6 g/dL (6.6-8.7) 04/28/25 11:33 Albumin 4.1 g/dL (3.5-5.2) 04/28/25 11:33 Globulin 2.5 g/dL (1.3-4.6) 04/28/25 11:33 Lipase 36 U/L (13-60) 04/28/25 11:33 Urine Color Yellow (Yellow) 04/28/25 11:45 Urine Appearance Clear (CLEAR) 04/28/25 11:45 Urine pH 5.5 (5-7) 04/28/25 11:45 Ur Specific Roberts 1.018 (1.005-1.030) 04/28/25 11:45 Urine Protein Negative (Negative) 04/28/25 11:45 Urine Glucose (UA) Negative (Normal) 04/28/25 11:45 Urine Ketones Negative (Negative) 04/28/25 11:45 Urine Blood Negative (Negative) 04/28/25 11:45 Urine Nitrate Negative (Negative) 04/28/25 11:45 Urine Bilirubin Negative (Negative) 04/28/25 11:45 Urine Urobilinogen 0.2 mg/dL (Negative) 04/28/25 11:45 Ur Leukocyte Esterase Negative (Negative) 04/28/25 11:45 Urine RBC 0-2 /hpf (0-2) 04/28/25 11:45 Urine WBC 0-5 /hpf (0-5) 04/28/25 11:45 Ur Squamous Epith Cells 0-5 /hpf (0-5) 04/28/25 11:45 Amorphous Sediment Not Reportable 04/28/25 11:45 Urine Bacteria None seen /hpf (NONE) 04/28/25 11:45 Hyaline Casts 0.40 /lpf 04/28/25 11:45 All radiology interpretation(s) finalized by discharge Discharge Plan Discharge Patient Disposition: Home Clinical Impression: Constipation Condition: Stable Prescriptions: New lactulose [Generlac] 10 gram/15 mL solution 30 ml PO Q2H PRN (Reason: constipation) 3 Days Qty: 1080 0RF Rx Instructions: until desired laxative effect No Action hydroxychloroquine 200 mg tablet See Rx Instructions PO .COMPLEX Qty: 135 1RF Rx Instructions: Alternate taking 1 tablet by mouth today then 2 tablets tomorrow. famotidine 40 mg tablet 40 mg PO BEDTIME gabapentin 100 mg capsule 100 mg PO BEDTIME citalopram 40 mg tablet 40 mg PO DAILY Qty: 90 0RF spironolactone 50 mg tablet 50 mg PO DAILY Qty: 90 3RF hydrocodone-acetaminophen 5-325 mg tablet 1 tab PO Q6H PRN (Reason: pain) Qty: 28 0RF promethazine 25 mg tablet 25 mg PO Q6H PRN (Reason: nausea and vomiting) Qty: 28 0RF lidocaine-prilocaine 2.5-2.5 % cream 1 applic topical DAILY Discharge Orders: Discharge ED (Routine); Ordered 04/28/25 Ordered By: Will Jackson Referrals: Kathleen Helms DO [Primary Care Provider, DRAINAGE INSPECTOR] Discharge Diet: Usual diet Discharge Activity: Increase activity as tolerated Patient Instructions: Opioid Safety, Pain Management, Patient Portal & Carmelina Instructions Activity Restrictions/Additional Instructions: Thank you for choosing [facility] for your healthcare needs today. It is very important that you follow up as instructed or that you return to the Emergency Department should you have concerns or if your condition changes or worsens in any way. You were seen emergency room with complaint of abdominal discomfort. Your laboratory tests are unremarkable CT did not show any acute findings there is chronic changes that had been seen previously. You do have significant amount of constipation of this likely what was causing your discomfort you given lactulose to use 30 mL every 2 hours until adequate results achieved. You can use MiraLAX [id number] 1 capful once a day or half a capful twice a day to help prevent constipation in the future. Print Language: Kenyan Coding Level of Care Code ED Wellness Trainer for Julian Blank
[2025-04-28 11:45] VITALS: BP 152/88; PULSE 60; RESP 16; O2SAT 99
[2025-04-28 11:54] LABS: Glucose Urine UA Negative (Normal); Nitrate Urine Negative (Negative); Specific Gravity, Urine 1.018 (1.005-1.030)
[2025-04-28 11:59] LABS: Add Urine Microscopic? YES
[2025-04-28 12:04] LABS: Alanine Aminotransferase 19 U/L (0-33); Albumin Level 4.1 g/dL (3.5-5.2); Alkaline Phosphatase 150 U/L (35-105); Anion Gap 15.9 (5-19); Aspartate Amino Transferase 23 U/L (0-32); Blood Urea Nitrogen 15 mg/dL (8-23); Calcium 10.7 mg/dL (8.5-10.5); Carbon Dioxide 28 mmol/L (22-29); Chloride 104 mmol/L (98-107); Creatinine Clr Calc Pharmacy 106.2214; Globulin 2.5 g/dL (1.3-4.6); Glucose 99 mg/dL (65-115); Lipase 36 U/L (13-60); Magnesium 1.8 mg/dL (1.7-2.3); Osmolality Calculated 299 mOsm/kg (285-295); Potassium 3.9 mmol/L (3.5-5.1); Sodium 144 mmol/L (136-145); Total Protein 6.6 g/dL (6.6-8.7)
--- NOTE | 2025-04-28 12:15 | CTR_ITS ---
PROCEDURE INFORMATION: Exam: CT Abdomen And Pelvis With Contrast Exam date and time: 04/28/2025 12:32 PM Age: 64 years old Clinical indication: Abdominal pain; Generalized; Prior surgery; Surgery date: <1 month; Surgery type: Total hysterectomy, ovaries and spleen, (cancer); Falopian tube and ovarian cancer, spleen taken also due to being nicked during surgery, ; additional info: Abd pain 4 weeks post op TECHNIQUE: Imaging protocol: Computed tomography of the abdomen and pelvis with contrast. Radiation optimization: All CT scans at this facility use at least one of these dose optimization techniques: automated exposure control; mA and/or kV adjustment per patient size (includes targeted exams where dose is matched to clinical indication); or iterative reconstruction. Contrast material: OMNIPAQUE 350; Contrast volume: 100 ml; Contrast route: INTRAVENOUS (IV); COMPARISON: CT abdomen pelvis w con* [id number] 12/21/2024 8:11 AM RADIATION DOSE METRICS: Total DLP (mGy-cm): 430.2 FINDINGS: Lungs: Lung bases are clear. No pleural effusion. Pleural spaces: Tiny bilateral pleural effusions are noted. Liver: Normal. No mass. Gallbladder and biliary ducts: Normal. No calcified stones. No ductal dilation. Pancreas: Normal. No ductal dilation. Spleen: The spleen has been resected. Adrenal glands: Normal. No mass. Kidneys and ureters: Normal. No hydronephrosis. Stomach and bowel: There is a large amount of stool throughout the entire colon. No bowel distension noted. Appendix: The appendix is clearly identified and is unremarkable. Intraperitoneal space: Unremarkable. No free air. No significant fluid collection. Vasculature: Unremarkable. No abdominal aortic aneurysm. Lymph nodes: Unremarkable. No enlarged lymph nodes. Urinary bladder: Unremarkable as visualized. Reproductive: The uterus and ovaries have been resected. Bones/joints: Unremarkable. No acute fracture. Soft tissues: Unremarkable. CT/CT abdomen pelvis w con* [id number] IMPRESSION: 1. Prominent constipation 2. Surgical changes noted
[2025-04-28] MEDS: ondansetron 2 mg/ML SDV 2 mL 4 MG IVP (12:29)
[2025-04-28] MEDS: HYDROmorphone 0.5 MG/0.5 ML INJ IVP (12:29)
[2025-04-28] MEDS: iohexol 350 mg/mL 500 mL Btl (per mL) IV (12:35)
[2025-04-28 12:45] VITALS: PULSE 72; RESP 16; O2SAT 100
--- NOTE | 2025-04-28 13:15 | PC.PHAR ---
Pt states she takes several supplements. I did not list them on her med list but they are as follows: Ivermectin tablets bid Fenbendazole tablets bid [employer] Tail Mushroom capsules bid Arpicot Kernel seeds 6 tablets daily Vitamin b6 tablets daily Vit. E 400iu capsules daily Vit d3 2,000mg daily Turmeric Root Extract tablets bid Vit. C 1,000mg daily
[2025-04-28 13:42] VITALS: BP 127/78; PULSE 64; O2SAT 99
== END 2025-04-28 13:43 | disposition home or self-care (01) ==
PROVIDERS: Emergency Provider Family Medicine; PCP Family Medicine
DX: K59.00 Constipation, unspecified (principal); Z98.890 Other specified postprocedural states; Z85.43 Personal history of malignant neoplasm of ovary
CPT/HCPCS: 36415; 71045; 74177; 80053; 81001; 83690; 83735; 85025; 96374; 96375; 99285; J1171; J2405

== ENCOUNTER 2025-06-26 13:44 | Outpatient (CLI) | payer MEDICAID, SELFPAY | END 2025-06-26 13:45 | disposition home or self-care (01) | LOC: SLEEP 13:45 | PROVIDERS: PCP Family Medicine; Visit Provider Family Medicine | DX: G47.33 Obstructive sleep apnea (adult) (pediatric) (principal) | CPT/HCPCS: G0399 ==